=== PATIENT | male | born 1960 | race Caucasian/White ===

== ENCOUNTER → 2020-04-03 | Outpatient (CLI) | payer BC | LOC: RAD 12:07 | DX: J18.9 Pneumonia, unspecified organism (principal) | CPT/HCPCS: 71046 ==

== ENCOUNTER → 2020-07-24 | Outpatient (CLI) | payer BC | LOC: RAD 13:48 | DX: M25.522 Pain in left elbow (principal); M13.822 Other specified arthritis, left elbow | CPT/HCPCS: 73080 ==